=== PATIENT | male | born 1990 | race Two or more races ===

== ENCOUNTER 2022-01-19 04:13 | Emergency (ER) | payer OTHER ==
[~2022-01-19] VITALS: Ht 177.8 cm; Wt 98.9 kg
== END 2022-01-19 08:59 | disposition home or self-care (01) ==
LOC: ER 04:13
DX: B34.9 Viral infection, unspecified (principal); R50.9 Fever, unspecified; Z20.822 Contact with and (suspected) exposure to COVID-19; Z91.013 Allergy to seafood